=== PATIENT | male | born 1960 ===

== ENCOUNTER 2023-06-07 14:23 | Outpatient (CLI) | payer OTHER, SELFPAY ==
[2023-06-07 22:24] LABS: PSA, Diagnostic 6.2 ng/mL (<=4.5)
== END 2023-06-07 14:24 | disposition home or self-care (01) ==
LOC: LBO 14:25
PROVIDERS: Visit Provider Nurse Practitioner Gerontology
DX: R97.20 Elevated prostate specific antigen [PSA] (principal)
CPT/HCPCS: 36415; 84153